=== PATIENT | male | born 1980 | race Caucasian/White ===

== ENCOUNTER 2019-07-17 11:14 | Outpatient (CLI) | payer OTHER, SELFPAY ==
--- NOTE | ~2019-07-17 | US_ITS ---
EXAMINATION: US thyroid DATE: 07/17/2019 11:59 INDICATION: Thyroid nodule. TECHNIQUE: Multiple ultrasound images of the thyroid were obtained. COMPARISON: Neck CT 12/20/2016 FINDINGS: The right thyroid lobe measures 4.7 x 1.9 x 1.3 cm. The left thyroid lobe measures 4.4 x 1.6 x 1.3 c m. The thyroid demonstrates coarsened echotexture and increased vascularity. IMPRESSION: 1. Heterogeneous, hypervascular thyroid, consistent with chronic lymphocytic (Keyla) thyroiditis. Reviewed, dictated and finalized at location A. FORCE DEVELOPMENT SPECIALIST IMPRESSION: 1. Heterogeneous, hypervascular thyroid, consistent with chronic lymphocytic (H ashimoto) thyroiditis.
== END 2019-07-17 11:15 | disposition home or self-care (01) ==
LOC: ANHIMG 11:23
PROVIDERS: PCP Emergency Medicine; Visit Provider Emergency Medicine
DX: E04.1 Nontoxic single thyroid nodule (principal)
CPT/HCPCS: 76536

== ENCOUNTER 2020-05-23 06:46 | Outpatient (NON) | payer OTHER, SELFPAY ==
[2020-05-24 00:44] LABS: SARS-CoV-2 RNA PCR Negative
== END 2020-05-23 06:47 ==
PROVIDERS: PCP Emergency Medicine; Visit Provider Emergency Medicine
DX: R68.89 Other general symptoms and signs (principal); Z20.828 Contact with and (suspected) exposure to other viral communicable diseases
CPT/HCPCS: 87635; C9803; U0003

== ENCOUNTER 2020-05-28 14:41 | Emergency (ER) | payer OTHER, SELFPAY ==
[2020-05-28 14:49] VITALS: BP 145/98; PULSE 86; RESP 14; TEMP 36.4; O2SAT 99
[2020-05-28] MEDS: methylPREDNISolone SOD SUCC 125 MG VIAL IM (15:53)
--- NOTE | 2020-05-28 16:21 | ED.GENADULT ---
HPI - General Adult General Chief complaint: Skin/Abscess/Foreign Body Stated complaint: RASH X4D Time Seen by Provider: 05/28/20 14:54 Source: patient Mode of arrival: ambulatory Limitations: no limitations History of Present Illness HPI narrative: Patient presents with chief complaint of raised rash that has spread across his body over the past 4 days. Patient states he caught his primary care virtually and they thought that it may be due to his amitriptyline so he was instructed to discontinue usage but he does not believe that is the case. Patient denies changes ampoule, soaps lotions or detergents. He denies any trouble breathing or swallowing or any involvement of his face. Patient has a rash on his chest back arms and legs. Patient states he is only when his home with this rash. Patient denies any fever, chills, nausea, vomiting, sore throat or any other symptoms. Related Data Home Medications Medication Instructions Recorded Confirmed atorvastatin 05/28/20 gabapentin 05/28/20 Allergies Allergy/AdvReac Type Severity Reaction Status Date / Time amoxicillin Allergy Mild Rash Verified 05/28/20 15:13 amitriptyline Allergy Unknown Rash Verified 05/28/20 15:13 Review of Systems Review of Systems: Narrative: CONSTITUTIONAL: Denies fever, chills, or sweats. EYES: Denies visual changes, redness, or discharge. ENT: Denies rhinorrhea, congestion, sore throat, or otalgia. CARDIOVASCULAR: Denies chest pain, palpitations, or edema. RESPIRATORY: Denies cough or dyspnea. GASTROINTESTINAL: Denies abdominal pain, nausea, vomiting, or diarrhea. GENITOURINARY: Denies dysuria or hematuria. SKIN: Reports rash. MUSCULOSKELETAL: Denies back pain, joint pain, or myalgia. NEUROLOGIC: Denies headache, numbness, dizziness, or weakness. PSYCHIATRIC: Denies anxiety or depression. PMFSH Social History Social History Smoking status: Smoker, status unknown Alcohol intake: never Exam Narrative: Exam Narrative: GENERAL: Well-appearing, well-nourished, and in no acute distress. HEAD: Normocephalic, atraumatic. EYES: PERRLA and EOMI. NECK: Supple. No adenopathy or masses. Range of motion intact. No rigidity CHEST: Clear to auscultation. No respiratory distress. No wheezes rales or rhonchi HEART: Regular rate and rhythm. No murmur heard. Normal peripheral pulses. EXTREMITIES: Normal range of motion. No edema. SKIN: Warm, dry. Small raised red patches to the patient's trunk arms and legs. Does not involve his face. NEURO: No focal deficits. Alert and oriented x3. PSYCH: Normal mood and affect. Course Vital Signs Vital signs: Vital Signs Temperature 97.5 F L 05/28/20 14:49 Pulse Rate 86 05/28/20 14:49 Respiratory Rate 14 05/28/20 14:49 Blood Pressure 145/98 H 05/28/20 14:49 Pulse Oximetry 99 05/28/20 14:49 Temperature 97.5 F L 05/28/20 14:49 Pulse Rate 86 05/28/20 14:49 Respiratory Rate 14 05/28/20 14:49 Blood Pressure 145/98 H 05/28/20 14:49 Pulse Oximetry 99 05/28/20 14:49 Medical Decision Making MDM Narrative Medical decision making narrative: Patient instructed to review his environment for any offending agents. Patient will be prescribed Zyrtec, Pepcid, Medrol Dosepak. Patient instructed to follow-up with his primary care for further investigation into his symptoms because if they persist skin evaluation and possible biopsy may be needed to further investigate his symptoms. Patient verbalized understanding agreement plan denies any other questions or concerns. Patient strict to return to emergency department if he has any emergency symptoms or any involvement of his face or throat or difficulty breathing or swallowing. He does not have any of these emergent symptoms presently. Differential Diagnosis Differential Diagnosis: Herpes simplex, allergic reaction, Barragan-Donis syndrome Vital Signs Vital Signs: Vital Signs Temperature 97.5 F L 05/28/20 14:49 Pulse Rate 86 12
== END 2020-05-28 16:22 | disposition home or self-care (01) ==
PROVIDERS: Emergency Provider Emergency Medicine; PCP Emergency Medicine
DX: L50.9 Urticaria, unspecified (principal)
CPT/HCPCS: 96372; 99283; J2930

== ENCOUNTER 2020-06-13 11:39 | Emergency (ER) | payer OTHER, SELFPAY ==
[2020-06-13 11:43] VITALS: BP 150/90; PULSE 102; RESP 16; TEMP 36.7; O2SAT 100
[2020-06-13 11:48] VITALS: BP 150/90; PULSE 102; RESP 16; TEMP 36.7; O2SAT 100
--- NOTE | 2020-06-13 11:52 | ED.SKABFB ---
HPI - Skin/Abscess/Foreign Bdy General Chief complaint: Skin/Abscess/Foreign Body Stated complaint: RASH Time Seen by Provider: 06/13/20 11:40 Source: patient and RN notes reviewed History of Present Illness HPI narrative: Patient is a 40-year-old male who presents the urgent care with complaints of a full body rash. Patient states that he was first seen at the emergency room approximately 3 weeks ago in which they thought he was having an allergic reaction . Patient states that at that time they gave him a shot of steroids and placed him on a 5-day taper. Patient states it did not improve and he followed up with his PCP. States that his PCP took him off atorvastatin and amitriptyline assuming it may be related. Patient states that he was then given another steroid taper as well as oral ketoconazole. Patient states that he has been taking oatmeal baths and using plain Ivory soap. Otherwise patient states he has not been putting anything on the rash. Denies any recent changes in creams, detergents, soaps. 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 Denies of any fever, chills, nausea, vomiting. Patient states he had not been sick prior to the breakout of the rash. No one else in the home has the rash. No other acute complaints. No acute distress noted. Patient aware of the plan of care. Some parts of this dictation were generated by voice recognition software and may contain typographical and/or grammatical inaccuracies. Related Data Home Medications Medication Instructions Recorded Confirmed ketoconazole 06/13/20 prednisone 06/13/20 Allergies Allergy/AdvReac Type Severity Reaction Status Date / Time amoxicillin Allergy Mild Rash Verified 06/13/20 11:44 amitriptyline Allergy Unknown Rash Verified 06/13/20 11:44 Review of Systems Review of Systems: Narrative: CONSTITUTIONAL: Denies fever, chills, or sweats. EYES: Denies visual changes, redness, or discharge. ENT: Denies rhinorrhea, congestion, sore throat, or otalgia. CARDIOVASCULAR: Denies chest pain, palpitations, or edema. RESPIRATORY: Denies cough or dyspnea. GASTROINTESTINAL: Denies abdominal pain, nausea, vomiting, or diarrhea. GENITOURINARY: Denies dysuria or hematuria. SKIN: Reports of a burning full body rash MUSCULOSKELETAL: Denies back pain, joint pain, or myalgia. NEUROLOGIC: Denies headache, numbness, or weakness. All other systems reviewed are negative, except as documented in HPI. PMFSH Social History Social History Smoking status: Smoker, status unknown Alcohol intake: never Comments At the time of my signature, I reviewed and agree with the nursing past medical, surgical, social, and family history. There is no relevant family history pertinent to the patient complaint. Exam Narrative: Exam Narrative: GENERAL: This is a well-nourished, well-developed patient, in no apparent distress. HEAD: normocephalic, atraumatic. EYES: PERRL. Sclera clear/white. Vision is grossly intact. EARS: External ears normal NOSE: External nose normal with no obvious nasal discharge, nares without redness, no rhinorrhea. THROAT: Mucous membranes moist, posterior pharynx clear. Mild postnasal drainage NECK: Neck supple SKIN: Pruritic erythemic diffuse/scattered papular to dermatitic lesions noted to the abdomen, bilateral lower extremities, feet, bilateral upper extremities NEURO: awake, alert, and oriented to person, place and time. There were no obvious focal neurologic abnormalities. EXTREMITIES: No clubbing, cyanosis, or edema Course Vital Signs Vital signs: Vital Signs Temperature 98.1 F 06/13/20 11:43 Pulse Rate 102 H 06/13/20 11:43 Respiratory Rate 16 06/13/20 11:43 Blood Pressure 150/90 H 06/13/20 11:43 Pulse Oximetry 100 06/13/20 11:43 Temperature 98.1 F 06/13/20 11:48 Pulse Rate 102 H 06/13/20 11:48 Respiratory Rate 16 06/13/20 11:48 Blood Pressure
== END 2020-06-13 12:05 | disposition home or self-care (01) ==
PROVIDERS: Emergency Provider Nurse Practitioner Family; PCP Emergency Medicine
DX: L30.9 Dermatitis, unspecified (principal); J44.9 Chronic obstructive pulmonary disease, unspecified
CPT/HCPCS: 87081; 87880; 99213; G0463

== ENCOUNTER 2020-08-23 22:42 | Emergency (ER) | payer OTHER, SELFPAY ==
[2020-08-23] VITALS (12 sets, daily range): BP systolic 123–132; BP diastolic 83–92; PULSE 65–91; RESP 12–21; TEMP 36.6; O2SAT 97–100
--- NOTE | ~2020-08-23 | XR_ITS ---
EXAMINATION: XR chest 2V DATE: 08/23/2020 23:17 INDICATION: Left chest pain. TECHNIQUE: Frontal and lateral views of the chest were obtained. COMPARISON: Chest 2 views 09/13/16, chest CT 11/30/2016 FINDINGS: There is mild atelectasis in lingula. No pleural effusion or pneumothorax. The heart size i s normal. IMPRESSION: 1. Mild atelectasis in lingula. Reviewed, dictated and finalized at location A.
--- NOTE | 2020-08-23 22:51 | ECG_ITS ---
Measurements Intervals [place] Rate: 92 P: 75 CA: 144 QRS: -21 QRSD: 100 T: 49 QT: 367 QTc: 455 Interpretive Statements SINUS RHYTHM WITH SINUS ARRHYTHMIA DELAYED PRECORDIAL R/S TRANSITION BASELINE ARTIFACT- AVR, AVL, AVF, V3-V6 BORDERLINE ECG Electronically Signed On 08-24-2020 7:08:05 CDT by Nathen Neri D.O.
[2020-08-23 23:02] LABS: Basophils Absolute Auto 0.1 K/mm3 (0.0-0.1); Basophils Percent Auto 0.8 % (0.2-1.2); Eosinophils Absolute Auto 0.1 K/mm3 (0-0.3); Eosinophils Percent Auto 1.4 % (0-4.4); Hematocrit 48.1 % (42.0-52.0); Hemoglobin 16.2 g/dL (14.0-18.0); Immature Granulocyte Absolute 0.03 K/mm3 (0.00-0.031); Immature Granulocyte Percent A 0.4 % (0-0.5); Lymphocytes Absolute Auto 2.52 K/mm3 (0.9-3.2); Lymphocytes Percent Auto 32.1 % (18.3-44.2); Mean Corpuscular HGB Conc 33.7 g/dl (32-36); Mean Corpuscular Hemoglobin 31.8 pg (26-34); Mean Corpuscular Volume 94.3 fl (80-100); Mean Platelet Volume 9.5 fl (7.4-10.4); Monocytes Absolute Auto 0.7 K/mm3 (0.1-0.6); Monocytes Percent Auto 8.8 % (2.6-8.5); Neutrophils Absolute Auto 4.5 K/mm3 (1.3-6.7); Neutrophils Percent Auto 56.5 % (45.5-73.1); Platelet Count Result 185 k/mm3 (150-375); Red Cell Distribution Width 13.1 % (11.5-14.5); White Blood Count 7.9 K/mm3 (4.5-10.0)
[2020-08-23] MEDS: ASPIRIN 81 MG CHEWABLE TABLET 324 MG PO (23:04)
[2020-08-23] MEDS: NITROGLYCERIN SL 0.4 MG TABLET SUBLINGUAL (23:07)
[2020-08-23 23:11] LABS: INR 0.9; Prothrombin Time 12.5 Seconds (11.1-14.7)
[2020-08-23 23:12] LABS: Partial Thromboplastin Time 30.2 SECONDS (22.3-36.8)
[2020-08-23 23:13] LABS: Potassium 4.1 mmol/L (3.4-5.0)
[2020-08-23 23:17] LABS: Anion Gap 5 mmol/L (8-16); Blood Urea Nitrogen 8 mg/dL (9-20); Calcium 9.9 mg/dL (8.4-10.2); Carbon Dioxide 30 mmol/L (22-30); Chloride 103 mmol/L (98-107); Estimated CRCL calculation 86 ml/min; Estimated Glomerular Filt Rate > 60; Glucose 107 mg/dL (75-110); Sodium 138 mmol/L (137-145)
[2020-08-23 23:25] LABS: Troponin I < 0.012 ng/mL (0.000-0.034)
[2020-08-24] VITALS (21 sets, daily range): BP systolic 110–137; BP diastolic 81–94; PULSE 55–69; RESP 12–24; O2SAT 97–100
--- NOTE | 2020-08-24 00:34 | ED.GENADULT ---
HPI - General Adult General Chief complaint: Chest Pain Stated complaint: CHEST PAIN Time Seen by Provider: 08/23/20 22:50 History of Present Illness HPI narrative: Patient 40-year-old gentleman who presents the emergency department with chief complaint of chest pain. The patient reports he had some discomfort in the midportion of his chest that radiated up into his left neck and over to his left arm. Patient states that this is been going on for several days but worsened today patient states the pain is improved since he is arrived in the emergency department and is mostly gone. Patient denies diaphoresis denies shortness of breath reports he has had no prior history of cardiac disease. Patient reports the symptoms today started while he was driving his vehicle reports that lasted for approximately 30 minutes. Related Data Home Medications Medication Instructions Recorded Confirmed ketoconazole 06/13/20 prednisone 06/13/20 Allergies Allergy/AdvReac Type Severity Reaction Status Date / Time amoxicillin Allergy Mild Rash Verified 06/13/20 11:44 amitriptyline Allergy Unknown Rash Verified 06/13/20 11:44 Review of Systems Review of Systems: Narrative: A 10 system review of systems was completed on the patient and is negative except for what is stated in the HPI. Nursing and ancillary documentation was reviewed. [facility] Social History Social History Smoking status: Smoker, status unknown Alcohol intake: never Exam Narrative: Exam Narrative: GENERAL: Well-appearing, well-nourished, and in no acute distress. HEAD: Normocephalic, atraumatic. EYES: PERRLA and EOMI. ENT: Nares clear, no rhinorrhea or epistaxis. Mucous membranes moist. NECK: Supple. CHEST: Clear to auscultation. No respiratory distress. HEART: Regular rate and rhythm. No murmur heard. Normal peripheral pulses. ABDOMEN: Soft, nontender, nondistended, normal active bowel sounds. EXTREMITIES: Normal range of motion. No edema. SKIN: Warm, dry, no rash. NEURO: No focal deficits. Alert and oriented x3. PSYCH: Normal mood and affect. Course Vital Signs Vital signs: Vital Signs Temperature 36.6 C 08/23/20 22:46 Pulse Rate 91 08/23/20 22:46 Respiratory Rate 13 08/23/20 22:46 Pulse Oximetry 100 08/23/20 22:46 Temperature 36.6 C 08/23/20 22:46 Pulse Rate 55 L 08/24/20 02:16 Respiratory Rate 17 08/24/20 02:16 Blood Pressure 134/89 08/24/20 02:16 Pulse Oximetry 98 08/24/20 02:16 Medical Decision Making Vital Signs Vital Signs: Vital Signs Temperature 36.6 C 08/23/20 22:46 Pulse Rate 91 08/23/20 22:46 Respiratory Rate 13 08/23/20 22:46 Pulse Oximetry 100 08/23/20 22:46 Temperature 36.6 C 08/23/20 22:46 Pulse Rate 55 L 08/24/20 02:16 Respiratory Rate 17 08/24/20 02:16 Blood Pressure 134/89 08/24/20 02:16 Pulse Oximetry 98 08/24/20 02:16 Lab Data Result diagrams: 08/23/20 22:54 08/23/20 22:54 Labs: Lab Results 08/23/20 08/23/20 08/23/20 Range/Units 22:54 22:54 22:54 WBC 7.9 (4.5-10.0) K/mm3 RBC 5.10 (4.6-6.20) M/mm3 Hgb 16.2 (14.0-18.0) g/dL Hct 48.1 (42.0-52.0) % MCV 94.3 (80-100) fl MCH 31.8 (26-34) pg MCHC 33.7 (32-36) g/dl RDW 13.1 (11.5-14.5) % Plt Count 185 (150-375) k/mm3 MPV 9.5 (7.4-10.4) fl Immature Gran % (Auto) 0.4 (0-0.5) % Neut % (Auto) 56.5 (45.5-73.1) % Lymph % (Auto) 32.1 (18.3-44.2) % [place] % (Auto) 8.8 H (2.6-8.5) % Eos % (Auto) 1.4 (0-4.4) % Baso % (Auto) 0.8 (0.2-1.2) % Lymph # (Auto) 2.52 (0.9-3.2) K/mm3 [place] # (Auto) 0.7 H (0.1-0.6) K/mm3 Eos # (Auto) 0.1 (0-0.3) K/mm3 Baso # (Auto) 0.1 (0.0-0.1) K/mm3 Abs Immat Gran (auto) 0.03 (0.00-0.031) K/mm3 Absolute Neuts (auto) 4.5 (1.3-6.7) K/mm3 Absolute Nucleated RBC 0.0 (0.0-0.012) K/mm3
[2020-08-24 02:19] LABS: Troponin I < 0.012 ng/mL (0.000-0.034)
== END 2020-08-24 02:39 | disposition home or self-care (01) ==
PROVIDERS: Emergency Provider Emergency Medicine; PCP Emergency Medicine
DX: R07.89 Other chest pain (principal); R94.31 Abnormal electrocardiogram [ECG] [EKG]
CPT/HCPCS: 36415; 71046; 80048; 84484; 85025; 85610; 85730; 93005; 99284; A9270

== ENCOUNTER 2020-12-24 13:17 | Outpatient (CLI) | payer OTHER, SELFPAY ==
--- NOTE | ~2020-12-24 | CT_ITS ---
EXAMINATION:CT diagnostic chest wo con DATE: 12/24/2020 13:49 INDICATION: Solitary nodule of lung. TECHNIQUE: Computed tomography (CT) of the chest was performed without intravenous contrast. Automate d exposure control and iterative reconstruction technique were employed. The dose-length product (DLP ) was 109.61 mGy-cm. COMPARISON: Chest CT 11/30/2016 FINDINGS: There is mild emphysema. There is a 4 mm nodule in right upper lobe without change. There i s mild atelectasis in the lungs bilaterally. There is a stable 4 mm nodule in left lower lobe. There is a stable 3 mm nodule in left upper lobe. No pleural effusion. The heart size is normal. No pericar dial effusion. Calcifications in the liver and spleen are consistent with old granulomatous disease. There is a chronic compression fracture of T7. IMPRESSION: 1. Stable small pulmonary nodules, likely benign. 2. Mild emphysema. Reviewed, dictated and finalized at location A.
== END 2020-12-24 13:18 | disposition home or self-care (01) ==
LOC: ANHIMG 13:18
PROVIDERS: PCP Emergency Medicine; Visit Provider Nurse Practitioner
DX: R91.1 Solitary pulmonary nodule (principal); J43.9 Emphysema, unspecified; R91.8 Other nonspecific abnormal finding of lung field
CPT/HCPCS: 71250

== ENCOUNTER 2021-01-15 08:12 | Outpatient (CLI) | payer OTHER, SELFPAY ==
--- NOTE | 2021-01-15 16:18 | WPDPFTINT ---
PFT Procedure Performed PFT Procedure Performed Spirometry with Pre/Post Bronchodilator Plethysmography (Lung Vol) Diffusing Cap (DLCO) Flow Vol Loop PFT Interpretation This is a pulmonary function test with pre and post-bronchodilator spirometry, plethysmography and diffusing capacity. The test was performed and results interpreted in accordance with the 2019 and 2005 ATS/ERS Task Force guidelines respectively using the Global Lung Function Initiative-2012 reference equations. Patient demonstrated good effort and cooperation. Reproducibility criteria were met. The quality of the pre bronchodilator spirometry maneuver was Grade A and post bronchodilator spirometry maneuver was Grade A. Findings: Spirometry: The contour of the inspiratory and expiratory flow tracing are normal. The pre bronchodilator FVC is 4.08 L, 89% predicted. The pre bronchodilator FEV1 is 3.11 L, 84% predicted. The FEV1: FVC ratio is 76%. The post bronchodilator FVC is 4.32 L, representing a 6% increase. The post bronchodilator FEV1 is 3.34 L, representing a 7% increase. Plethysmography: The total lung capacity is 5.75 L, 93% predicted. The functional residual capacity is 2.97 L, 99% predicted. The residual volume is 1.55 L, 95% predicted. Diffusing capacity: The absolute diffusion capacity is 17.9, 58% predicted. The diffusing capacity corrected for alveolar volume is 3.34, 66% predicted. in comparison to the previous pulmonary function test in our laboratory on 03/18/2019 the post bronchodilator FVC is unchanged from 4.15 L to 4.32 L. The post bronchodilator FEV1 is unchanged from 3.27 L to 3.34 L. The total lung capacity is unchanged from 6.17 L to 5.75 L. The functional residual capacity is unchanged from 3.41 L to 2.97 L. The residual volume has decreased from 2.06 L to 1.55 L. the absolute diffusion capacity is unchanged from 16.0 to 17.9. The diffusing capacity corrected for alveolar volume is unchanged from 3.33 to 3.34. Impression: The spirometry is normal without evidence of an obstructive abnormality. There is no significant improvement after inhaling a single dose of albuterol. The lung volumes are normal. The absolute diffusing capacity is moderately decreased and remains mildly decreased when corrected for alveolar volume. When compared to previous pulmonary function tests on 03/18/2019 there has been a greater than anticipated time dependent decrease in the residual volume with no change in the FVC, FEV1, total lung capacity, functional residual capacity, absolute diffusion capacity or diffusing capacity corrected for alveolar volume. Clinical correlation is recommended. There are no prior studies for comparison
== END 2021-01-15 08:13 | disposition home or self-care (01) ==
LOC: ANHPFT 08:18
PROVIDERS: PCP Emergency Medicine; Visit Provider Nurse Practitioner
DX: J43.9 Emphysema, unspecified (principal)
CPT/HCPCS: 94060; 94726; 94729

== ENCOUNTER 2021-11-03 10:47 | Outpatient (CLI) | payer OTHER, SELFPAY ==
--- NOTE | 2021-11-03 12:00 | EST_ITS ---
Patient Info Name: Michael Hope Age: 41 years : 1980 Gender: Male Ht: 66 in Wt: 165 lbs BSA: 1.88 m2 HR: 74 bpm BP: 116 / 81 mmHg Heart Rhythm: Sinus Rhythm Exam Date: 11/03/2021 11:25 AM Exam Location: [facility] Stress Patient Status: Outpatient Admit Date: 11/03/2021 Staff Ordering Physician: Ruy, Sha Marie MD Attending Provider: RuySha MD Exercise Technologist: Nadya Mendenhall CT Exercise Physician: Nathen Neri DO Exam Type: CA stress test treadmill Study Info Indications R07.9 - Chest pain, unspecified An exercise stress test was performed. Summary 1. 1. Negative Mitch exercise stress test for ischemic ST changes by ECG criteria. 2. 2. Good functional capacity, achieving 11 METs of workload. 3. 3. Appropriate HR response to exercise. 4. 4. Appropriate HR recovery at 1 minute post exercise. 5. 5. No imaging with stress testing. 6. 6. Patient informed of the above results. Protocol: Mitch Rest HR: 78 bpm Peak HR: 150 bpm Rest Sys BP: 123 mmHg Peak Sys BP: 163 mmHg Max Pred HR: 178 bpm % Max Pred HR: 84 % Target HR: 151 bpm Max RPP: 24,450 bpm*mmHg Termination Reason: Reached target heart rate or workload Cardiac Symptoms: Shortness of breath Max ST Seg Deviation: -2.00 mm Total Time: 9 min : 47 sec Rest Rodriguez BP: 82 mmHg Peak Rodriguez BP: 88 mmHg Total METS: 11.5 Resting ECG Sinus rhythm, IRBBB, delayed precordial R/S transition. Stress ECG No ST changes. Arrhythmias None. Report Signatures
== END 2021-11-03 10:48 | disposition home or self-care (01) ==
LOC: ANHCARD 10:49
PROVIDERS: PCP Emergency Medicine; Visit Provider Emergency Medicine
DX: Z82.49 Family history of ischemic heart disease and other diseases of the circulatory system (principal)
CPT/HCPCS: 93017

== ENCOUNTER → 2022-05-19 12:48 | Outpatient (CLI) | payer OTHER, SELFPAY ==
--- NOTE | ~2022-05-19 | XR_ITS ---
XR chest 2V DATE: 05/19/2022 13:06 INDICATION: Cough. History of COPD. TECHNIQUE: PA and lateral views COMPARISON: 12/24/2020 CT chest 08/23/2020 2 view chest FINDINGS: Moderate bilateral hyperinflation consistent with history of COPD. No pulmonary infiltrate or consolidation, pleural effusion or pulmonary vascular congestion or pneumo thorax. Minimal discoid atelectasis or scarring at the lingula. No hilar or mediastinal enlargement. Normal heart size. Osteopenia. IMPRESSION: COPD Minimal discoid atelectasis or scarring at the lingula Reviewed, dictated and finalized at location B. IPLE WIRE SAWYER
== END ==
PROVIDERS: PCP Nurse Practitioner; Visit Provider Nurse Practitioner
DX: R05.9 Cough, unspecified (principal); J44.9 Chronic obstructive pulmonary disease, unspecified
CPT/HCPCS: 71046

== ENCOUNTER 2022-05-19 13:11 | Outpatient (CLI) | payer OTHER, SELFPAY ==
[2022-05-19 19:19] LABS: Basophils Absolute Auto 0.1 K/mm3 (0.0-0.1); Basophils Percent Auto 0.7 % (0.2-1.2); Eosinophils Absolute Auto 0.1 K/mm3 (0-0.3); Hematocrit 47.9 % (42.0-52.0); Hemoglobin 15.7 g/dL (14.0-18.0); Immature Granulocyte Absolute 0.06 K/mm3 (0.00-0.031); Immature Granulocyte Percent A 0.6 % (0-0.5); Lymphocytes Absolute Auto 1.89 K/mm3 (0.9-3.2); Lymphocytes Percent Auto 18.8 % (18.3-44.2); Mean Corpuscular HGB Conc 32.8 g/dl (32-36); Mean Corpuscular Volume 97.6 fl (80-100); Monocytes Absolute Auto 0.7 K/mm3 (0.1-0.6); Monocytes Percent Auto 6.9 % (2.6-8.5); Neutrophils Absolute Auto 7.3 K/mm3 (1.3-6.7); Red Blood Count 4.91 M/mm3 (4.6-6.20); Red Cell Distribution Width 13.2 % (11.5-14.5); White Blood Count 10.1 K/mm3 (4.5-10.0)
[2022-05-19 20:16] LABS: Atypical Lymphocytes Present; Schistocytes None Seen (NORMAL)
[2022-05-23 16:09] LABS: Angiotensin Converting Enzyme 45.1 U/L (9-67)
[2022-05-23 16:28] LABS: Immunoglobulin G, Serum 919 mg/dL (600-1640); Immunoglobulin G1 594 mg/dL (382-929); Immunoglobulin G2 185 mg/dL (241-700); Immunoglobulin G3 45 mg/dL (22-178); Immunoglobulin G4 9.5 mg/dL (4.0-86.0)
[2022-05-23 23:07] LABS: Immunoglobulin E 29 kU/L (<=114)
[2022-05-25 14:36] LABS: Blastomyces Antibody Negative (Negative); H Band Histoplasma Negative (Negative); M Band Histoplasma Negative (Negative)
[2022-05-27 18:17] LABS: Coccidioides Ab to F Ag (IgG) NEGATIVE; Coccidioides Ab to TP Ag (IgM) NEGATIVE
== END 2022-05-19 13:12 | disposition home or self-care (01) ==
LOC: ANHGOSHLAB 13:13
PROVIDERS: PCP Nurse Practitioner; Visit Provider Nurse Practitioner
DX: R91.8 Other nonspecific abnormal finding of lung field (principal); R06.09 Other forms of dyspnea; R05.9 Cough, unspecified
CPT/HCPCS: 36415; 71046; 82104; 82164; 82784; 82785; 82787; 85025; 85055; 86003; 86038; 86331; 86480; 86606; 86609; 86612; 86635; 86698

== ENCOUNTER 2022-05-20 14:01 | Outpatient (NON) | payer OTHER, SELFPAY | END 2022-05-20 14:02 | disposition home or self-care (01) | LOC: ANHGOSHLAB 14:03 | PROVIDERS: PCP Nurse Practitioner; Visit Provider Nurse Practitioner | DX: R91.8 Other nonspecific abnormal finding of lung field (principal); R06.09 Other forms of dyspnea | CPT/HCPCS: 87070; 87205 ==

== ENCOUNTER 2022-06-29 13:05 | Outpatient (CLI) | payer OTHER, SELFPAY ==
--- NOTE | ~2022-06-29 | CT_ITS ---
EXAMINATION: CTA chest PE protocol DATE: 06/29/2022 13:36 INDICATION: Tachycardia. Dyspnea on exertion. TECHNIQUE: Computed tomography (CT) pulmonary angiogram of the chest was performed with 100 mL Omnipa que-350 intravenous contrast. Additional 3D reconstructions utilizing coronal maximum intensity proje ction (MIP) were performed. Automated exposure control and iterative reconstruction technique were em ployed. The dose-length product was 398.57 mGy-cm. COMPARISON: 11/30/2016 FINDINGS: Adequate but suboptimal contrast opacification of the pulmonary arteries. There is moderate streak ar tifact from dense contrast in the superior vena cava and right atrium. Mild to moderate scattered res piratory motion artifact greatest at the bilateral lung bases where it renders evaluation in the smal ler subsegmental pulmonary arteries essentially nondiagnostic. There is mild decrease sensitivity in the subsegmental pulmonary arteries in the mid and upper lung zones. Unchanged subpleural nodules in the bilateral upper lobes along the cephalad aspect of the major fissures measuring 4 mm on the right and 3 mm in the left consistent with old granulomatous disease. No evident pulmonary embolism. Mild emphysema. Mild discoid atelectasis at the lingula and right middle lobe. No pneumonia, pulmonary b[place] ma, pleural effusion or pneumothorax. Heart size is normal. No pericardial effusion. No pathologicall y enlarged thoracic lymphadenopathy. Mild bilateral gynecomastia. A few tiny hepatic and splenic calc ific lesions consistent with old granulomatous disease. Visualized upper abdomen is otherwise unremar kable. Chronic T7 compression fracture IMPRESSION: 1. No pulmonary embolism. Sensitivity decreased in the subsegmental pulmonary arteries due to combina tion of good but suboptimal contrast opacification and some respiratory motion. 2. Mild emphysema. Reviewed, dictated and finalized at location A. AND SIZER IMPRESSION: 1. No pulmonary embolism. Sensitivity decreased in the subsegmental pulmonary a rteries due to combination of good but suboptimal contrast opacification and so me respiratory motion. 2. Mild emphysema.
== END 2022-06-29 13:06 | disposition home or self-care (01) ==
PROVIDERS: PCP Nurse Practitioner; Visit Provider Nurse Practitioner
DX: R07.9 Chest pain, unspecified (principal); R06.09 Other forms of dyspnea; J43.9 Emphysema, unspecified
CPT/HCPCS: 71275; Q9967

== ENCOUNTER 2022-08-03 07:25 | Outpatient (CLI) | payer OTHER, SELFPAY ==
--- NOTE | 2022-08-03 | ECHO_ITS ---
Patient Info Name: Michael Hope Age: 42 years : 1980 Gender: Male Ht: 66 in Wt: 165 lbs BSA: 1.88 m2 HR: 69 bpm BP: 142 / 102 mmHg Technical Quality: Good Exam Date: 08/03/2022 8:16 AM Exam Location: [facility] Pulmonary Patient Status: Outpatient Admit Date: 08/03/2022 Staff Ordering Physician: Mitesh, Gisele GUO Windows Vmware Engineer: Braydon Rose, WILMER, RT Attending Provider: Mitesh, Gisele GUO Exam Type: CA echo doppler color flow Study Info Indications R06.00 - Dyspnea, unspecified Complete two-dimensional, color flow and Doppler transthoracic echocardiogram is performed. Strain analysis performed. Summary 1. Complete two-dimensional, color flow and Doppler transthoracic echocardiogram is performed. 2. Left ventricular chamber dimension is mildly enlarged. 3. Left ventricular systolic function is normal, estimated at 55-60%. 4. The left ventricular diastolic function is normal. 5. E/e' 4 is not elevated. 6. Global longitudinal strain is abnormal at -15.9%. 7. There is trace mitral valve regurgitation. Left Ventricle E/e' 4 is not elevated. Global longitudinal strain is abnormal at -15.9%. Left ventricular chamber dimension is mildly enlarged. Left ventricular systolic function is normal, estimated at 55-60%. The left ventricular diastolic function is normal. Right Ventricle Right ventricular systolic function is normal and with normal TAPSE 2.1 cm. Right ventricular chamber dimension is normal. Left Atria Left atrial chamber dimension is normal. Right Atria Right atrial chamber dimension is normal. Aortic Valve The aortic valve is trileaflet. There is no aortic valve stenosis. There is no aortic valve regurgitation. Pulmonic Valve There is no pulmonic regurgitation. Mitral Valve There is no mitral valve stenosis. There is trace mitral valve regurgitation. Tricuspid Valve There is no tricuspid valve regurgitation. Pericardium/Pleural There is no pericardial effusion. Inferior Vena Cava Normal inferior vena cava with >50% collapse upon inspiration consistent with normal right atrial pressure, 5 mmHg. Aorta The aortic root size at the sinus of Valsalva is normal. Left Ventricular Outflow Tract Name Value Normal LVOT 2D LVOT Diameter 2.2 cm LVOT Doppler LVOT Peak Gradient 3 mmHg LVOT Mean Gradient 2 mmHg LVOT VTI 19 cm LVOT VTI/AV VTI Ratio 0.9 LVOT Stroke Volume 71 ml LVOT CO 4.5 l/min LVOT CI 2.4 l/min/m2 Mitral Valve Name Value Normal MV Doppler MV Decel [place] 154 cm/s2 MV PHT 93 ms MV Area (PHT)
== END 2022-08-03 07:26 | disposition home or self-care (01) ==
PROVIDERS: PCP Nurse Practitioner; Visit Provider Nurse Practitioner
DX: R06.09 Other forms of dyspnea (principal)
CPT/HCPCS: 93306

== ENCOUNTER 2023-08-22 15:52 | Outpatient (CLI) | payer OTHER, SELFPAY ==
--- NOTE | ~2023-08-22 | CT_ITS ---
EXAMINATION: CT diagnostic chest wo con DATE: 08/22/2023 16:06 INDICATION: LUNG NODULE TECHNIQUE: Computed tomography (CT) of the chest was performed without intravenous contrast. Automate d exposure control and iterative reconstruction technique were employed. The dose-length product was 260.96 mGy-cm. COMPARISON: CT chest 12/24/2020. FINDINGS: CHEST: Thoracic aorta: No significant dilation or calcification. Lung parenchyma and airways: Small peripheral blebs in the lung apices. Very mild peripheral and cent rilobular groundglass opacities. Lung parenchyma otherwise clear. Patent airways. Multiple sub-6 mm p ulmonary nodules that are smaller and beginning to calcify, or demonstrate long-term stability and th erefore represent benign granulomas. Mild lingular scarring. Thoracic inlet, axillae and chest wall: Mild symmetric gynecomastia. No thyroid mass. No axillary lym phadenopathy. Mediastinum: No mass or lymphadenopathy. Heart and pericardium: Normal heart size. No pericardial effusion. Coronary artery calcifications: Absent. Pleura: No effusion or mass. Upper abdomen: Calcified hepatic and splenic granulomas. Thoracic bones: No acute osseous finding in the chest. Chronic-appearing superior endplate deformity in T7. IMPRESSION: Mild groundglass pulmonary opacities may represent hypersensitivity pneumonitis, respiratory bronchio litis in smokers, or infectious airways disease. Multiple pulmonary granulomas. No suspicious pulmonary nodules, prior follow-up imaging. Mild symmetric gynecomastia. Reviewed, dictated and finalized at location [facility]. IMPRESSION: Mild groundglass pulmonary opacities may represent hypersensitivity pneumonitis , respiratory bronchiolitis in smokers, or infectious airways disease. Multiple pulmonary granulomas. No suspicious pulmonary nodules, prior follow-up imaging. Mild symmetric gynecomastia.
== END 2023-08-22 15:53 | disposition home or self-care (01) ==
LOC: ANHIMG 15:53
PROVIDERS: PCP Nurse Practitioner; Visit Provider Emergency Medicine
DX: R91.1 Solitary pulmonary nodule (principal); R05.9 Cough, unspecified
CPT/HCPCS: 71250